=== PATIENT | female | born 1965 | race African-American/Black ===

== ENCOUNTER 2019-06-28 12:27 | Inpatient (IN) | payer OTHER ==
[2019-06-28 13:45] VITALS: BMI 38.0
--- NOTE | 2019-06-28 15:11 | HP ---
COWS - Scale Resting Pulse: 0= [place] 80 or Below Sweatin= Chills/Flushing Restless Observation: 1= Difficult to Sit Still Pupil Size: 1= Pupils >than Normal Bone or Joint Aches: 2= Severe Diffuse Aches Runny Nose/ Eye Tearin= Runny Nose/Eyes GI Upset > 30mins: 2= Nausea/Diarrhea Tremor Observation: 2= Slight Tremor Visible Yawning Observation: 2= >3x During Session Anxiety or Irritability: 2=Irritable/Anxious Goose Flesh Skin: 0=Smooth Skin COWS Score: 15 CIWA Score Nausea/Vomitin Muscle Tremors: 3 Anxiety: 3 Agitation: 3 Paroxysmal Sweats: 1-Minimal Palms Moist Orientation: 0-Oriented Tacttile Disturbances: 1-Very Mild Itch/Numbness Auditory Disturbances: 0-None Visual Disturbances: 0-None Headache: 2-Mild CIWA-Ar Total Score: 15 - Admission Criteria OASAS Guidelines: Admission for Medically Managed Detox: Requires at least one of the followin. CIWA greater than 12 2. Seizures within the past 24 hours 3. Delirium tremens within the past 24 hours 4. Hallucinations within the past 24 hours 5. Acute intervention needed for co occurring medical disorder 6. Acute intervention needed for co occurring psychiatric disorder 7. Severe withdrawal that cannot be handled at a lower level of care (continued vomiting, continued diarrhea, abnormal vital signs) requiring intravenous medication and/or fluids 8. Admitting History and Physical - Admission Chief Complaint: i need help to stop using heroin,alcohol,cocaine,xanax History of Present Illness: this 54 years old female with heroin,alcohol,cocaine,xanax dependence,seking help,detox,withdrawal symptom,last detox [id number] not completed History Source: Patient - Past Medical History Cardiovascular: Yes: HTN, Hyperlipdemia ...: No ...: 8 ...Para: 7 Psych: Yes: Bipolar, Depression Musculoskeletal: Yes: Osteoarthritis Dermatology: Yes: Eczema - Past Surgical History Past Surgical History: Yes: Additional Past Surgical History: c/s x 2 last 18 - Smoking History Smoking history: Current every day smoker Have you smoked in the past 12 months: Yes Aproximately how many cigarettes per day: 5 - Alcohol/Substance Use Hx Alcohol Use: Yes History of Substance Use: reports: Cocaine, Heroin, Tranquilizers - Social History Usual Living Arrangement: Yes: Other (homeless) ADL: Support Services Occupation: unemployed History of Recent Travel: No Admission ROS [facility] Chief Complaint: i need help to stop using heroin,alcohol,cocaine,xanax Allergies/Adverse Reactions: Allergies Allergy/AdvReac Type Severity Reaction Status Date / Time No Known Allergies Allergy Verified 06/28/19 13:35 - Ebola screening Have you traveled outside of the country in the last 21 days: No Have you had contact with anyone from an Ebola affected area: No Have you been sick,other than usual withdrawal symptoms: No Do you have a fever: No - Review of Systems Constitutional: Chills, Loss of Appetite, Malaise, Night Sweats, Changes in sleep, Weakness EENT: reports: Tearing, Nose Congestion Respiratory: reports: No Symptoms reported Cardiac: reports: No Symptoms Reported GI: reports: Nausea, Poor Appetite, Abdominal cramping : reports: No Symptoms Reported Musculoskeletal: reports: Back Pain, Joint Pain, Muscle Pain Neuro: reports: Headache, Tremors Endocrine: reports: No Symptoms Reported Hematology: reports: No Symptoms Reported Psychiatric: reports: No Sypmtoms Reported, Judgement Intact, Mood/Affect Appropiate, Orientated x3, other (bipolar disorder,insomnia) Patient History - Patient Medical History Hx Anemia: No Hx Asthma: No Hx Chronic Obstructive Pulmonary Disease (COPD): No Hx Cancer: No Hx Cardiac Disorders: No Hx Congestive Heart Failure: No Hx Hypertension: Yes (on med) Hx Hypercholesterolemia: Yes (on med) Hx Pacemaker: No HX Cerebrovascular Accident: No Hx Seizures: No Hx Dementia: No Hx Diabetes: No Hx Gastrointestinal Disorders: No Hx Liver Disease: No Hx Genitourinary Disorders: No Hx Sexually Transmitted Disorders: No Hx Renal Disease (ESRD): No Hx Thyroid Disease: No Hx Human Immunodeficiency Virus (HIV): No (last 06/09 negative) Hx Hepatitis C: No Hx Depression: No Hx Suicide Attempt: No Hx Bipolar Disorder: Yes (no med) Hx Schizophrenia: No Other Medical History: no suicidal,no homicidal - Patient Surgical History Past Surgical History: Yes Hx Section: Yes (x2 last 18 yars ago) - Reproductive History Patient is a Female of Child Bearing Age (11 -55 yrs old): Yes Last Menstrual Period: 04/29/15 Patient : No - Smoking Cessation Smoking history: Current every day smoker Have you smoked in the past 12 months: Yes Aproximately how many cigarettes per day: 5 Cigars Per Day: 0 Hx Chewing Tobacco Use: No Initiated information on smoking cessation: Yes 'Breaking Loose' booklet given: 06/28/19 - Substance & Tx. History Hx Alcohol Use: Yes Hx Substance Use: Yes Substance Use Type: Alcohol, Cocaine, Heroin, Tranquilizers Hx Substance Use Treatment: Yes ([facility] 06/09 not completed) - Substances abused Alcohol Substance route: Oral Frequency: Daily Amount used: 1 nip and 1 16oz beer Age of first use: 54 Date of last use: 06/26/19 Alprazolam (Xanax) Substance route: Oral Frequency: Daily Amount used: 4mg/day Age of first use: 54 Date of last use: 06/27/19 Heroin Substance route: Inhalation Frequency: Daily Amount used: 12 bags/day Age of first use: 28 Date of last use: 06/28/19 Cocaine Substance route: Smoking Frequency: Daily Amount used: $30/day Age of first use: 35 Date of last use: 06/27/19 Admission Physical Exam S - Vital Signs Vital Signs: Vital Signs - 24 hr 06/28/19 13:35 Temperature 98.0 F Pulse Rate 62 Respiratory 16 Rate Blood Pressure 180/100 H - Physical General Appearance: Yes: Moderate Distress, Tremorous, Irritable, Sweating, Anxious HEENTM: Yes: Normal ENT Inspection, KATHLEEN, Pharynx Normal Respiratory: Yes: Lungs Clear, Normal Breath Sounds, No Respiratory Distress Neck: Yes: Within Normal Limits, Supple, Trachea in good position Breast: Yes: Breast Exam Deferred Cardiology: Yes: Within Normal Limits, Regular Rhythm, S1, S2, Tachycardia Abdominal: Yes: Within Normal Limits, Normal Bowel Sounds, Non Tender, Soft Genitourinary: Yes: Within Normal Limits Back: Yes: Muscle Spasm Musculoskeletal: Yes: Back pain, Joint Stiffness, Muscle Pain Extremities: Yes: Within Normal Limits, Normal Range of Motion, Tremors Integumentary: Yes: Dry, Rash (eczema) - Diagnostic (1) Opioid dependence with withdrawal Current Visit: Yes Status: Acute (2) Cocaine dependence Current Visit: Yes Status: Acute (3) Cannabis dependence Current Visit: Yes Status: Acute (4) Alcohol dependence with uncomplicated withdrawal Current Visit: Yes Status: Acute (5) Dehydration Current Visit: Yes Status: Acute (6) Eczema Current Visit: Yes Status: Acute (7) Bipolar 1 disorder Current Visit: Yes Status: Acute Cleared for Admission S - Detox or Rehab [facility] Level of Care: Medically Managed (and ativan) Detox Regimen/Protocol: Methadone Claeared for Rehab Admission: Yes Breathalyzer - Breathalyzer Breathalyzer: 0 Urine Drug Screen - Test Device Lot number: [id number] Expiration date: 02/18/21 - Control Is test valid?: Yes - Results Drug screen NEGATIVE: No Urine drug screen results: WILMER-Cocaine, FEN-Fentanyl, MOP-Opiates, MTD-Methadone , BZO-Benzodiazepines Inpatient Rehab Admission - Rehab Decision to Admit Inpatient rehab admission?: No
[2019-06-28] MEDS ORDERED: BISMUTH SUBSALICYLATE 524 MG/30 ML UD PO PRN (15:25)
[2019-06-28] MEDS ORDERED: ACETAMINOPHEN 325 MG TABLET (FP) PO PRN ×2 (15:25)
[2019-06-28] MEDS ORDERED: LORazepam 1 MG TABLET PO PRN (15:25)
[2019-06-28] MEDS ORDERED: MAGNESIUM CITRATE 300 ML BOTTLE PO PRN (15:25)
[2019-06-28] MEDS ORDERED: MENTHOL/PHENOL 1 EACH UD MM PRN (15:25)
[2019-06-28] MEDS ORDERED: cloNIDine HCL 0.1 MG TABLET PO PRN (15:25)
[2019-06-28] MEDS ORDERED: METHADONE HCL 10 MG TABLET (FOR DETOX USE ONLY) PO ONE (15:25)
[2019-06-28] MEDS ORDERED: MAGNESIUM HYDROX 2400MG/30ML ORAL SUSPENSION 30 ML CUP PO PRN (15:25)
[2019-06-28] MEDS ORDERED: IBUPROFEN 400 MG TABLET (FP) PO PRN (15:25)
[2019-06-28] MEDS ORDERED: MAG HYDROX/AL HYDROX/SIMETH 30 ML UNIT-DOSE CUP PO PRN (15:25)
[2019-06-28] MEDS ORDERED: hydrOXYzine PAMOATE 25 MG CAPSULE (FP) PO PRN (15:25)
[2019-06-28] MEDS ORDERED: METHOCARBAMOL 500 MG TABLET PO PRN (15:25)
[2019-06-28] MEDS: LORazepam 2 MG TABLET PO SCH ×2 (16:56→22:36)
[2019-06-28] MEDS: HYDROCHLOROTHIAZIDE 25 MG TABLET (FP) PO SCH (16:56)
[2019-06-28] MEDS: MELATONIN 5 MG TABLETS PO PRN (22:36)
[2019-06-28] MEDS: THIAMINE HCL 100 MG TABLET (FP) PO SCH (22:36)
[2019-06-28] MEDS: FLUOCINONIDE 0.05% TOP OINT (60 GM TUBE) TP SCH (22:36)
[2019-06-29] MEDS: LORazepam 2 MG TABLET PO SCH ×4 (05:56→22:23)
[2019-06-29] MEDS ORDERED: METHADONE HCL 10 MG TABLET (FOR DETOX USE ONLY) ONE (09:39)
[2019-06-29] MEDS ORDERED: METHADONE HCL 5 MG TABLET (FOR DETOX USE ONLY) ONE (09:39)
[2019-06-29] MEDS ORDERED: METHADONE (DETOX) 20 MG, METHADONE (DETOX) 5 MG PO ONE (10:00)
[2019-06-29] MEDS: PRENATAL VITAMINS W/ FOLIC ACID TABLET (FP) PO SCH (10:29)
[2019-06-29] MEDS: FLUOCINONIDE 0.05% TOP OINT (60 GM TUBE) TP SCH ×2 (10:31→22:23)
[2019-06-29] MEDS: HYDROCHLOROTHIAZIDE 25 MG TABLET (FP) PO SCH (10:31)
[2019-06-29 11:02] LABS: HEMATOCRIT 35.3 % (32.4-45.2); HEMOGLOBIN 11.4 GM/dL (10.7-15.3); MCH 24.5 pg (25.7-33.7); MCHC 32.2 g/dl (32.0-36.0); MEAN CELL VOLUME 75.9 fl (80-96); MEAN PLT VOLUME 9.1 fl (7.5-11.1); PLATELET COUNT 212 K/MM3 (134-434); RBC 4.65 M/mm3 (3.60-5.2); RDW 16.6 % (11.6-15.6); WHITE BLOOD COUNT 6.3 K/mm3 (4.0-10.0)
[2019-06-29 11:20] LABS: ALBUMIN 2.9 g/dl (3.4-5.0); BILIRUBIN,TOTAL 0.3 mg/dL (0.2-1); BLOOD UREA NITROGEN 10.4 mg/dL (7-18); CREATININE 0.9 mg/dL (0.55-1.3); POTASSIUM 3.2 mmol/L (3.5-5.1); TOT PROT 5.8 g/dl (6.4-8.2)
--- NOTE | 2019-06-29 11:28 | PN ---
S CIWA - CIWA Score Nausea/Vomitin-Mild Nausea/No Vomiting Muscle Tremors: 2 Anxiety: 3 Agitation: 1-Slight > Activity Paroxysmal Sweats: 2 Orientation: 1-Uncertain about Date Tacttile Disturbances: 1-Very Mild Itch/Numbness Auditory Disturbances: 1-Very Mild Visual Disturbances: 0-None Headache: 2-Mild CIWA-Ar Total Score: 14 BHS COWS - Scale Resting Pulse: 0= [place] 80 or Below Sweatin= Chills/Flushing Restless Observation: 0= Sits Still Pupil Size: 1= Pupils >than Normal Bone or Joint Aches: 1= Mild Discomfort Runny Nose/ Eye Tearin= Nasal Congestion GI Upset > 30mins: 2= Nausea/Diarrhea Tremor Observation of Outstretched Hands: 2= Slight Tremor Visible Yawning Observation: 1= 1-2x During Session Anxiety or Irritability: 2=Irritable/Anxious Goose Flesh Skin: 3=Piloerection COWS Score: 14 S Progress Note (SOAP) Subjective: 54 years old female admitted on 06/28/19 for alcohol opiate withdrawal sx management treated with ativan and methadone ate breakfast tolerated food and fluid well felling tired prefers to stay in bed today Objective: 06/29/19 11:30 Vital Signs Temperature 98.6 F 06/29/19 09:24 Pulse Rate 61 06/29/19 09:24 Respiratory Rate 18 06/29/19 09:24 Blood Pressure 142/93 06/29/19 09:24 O2 Sat by Pulse Oximetry (%) Laboratory Last Values Sodium 143 mmol/L (136-145) 06/29/19 07:50 Potassium 3.2 mmol/L (3.5-5.1) L 06/29/19 07:50 Chloride 104 mmol/L (98-107) 06/29/19 07:50 Carbon Dioxide 32 mmol/L (21-32) 06/29/19 07:50 Anion Gap 7 MMOL/L (8-16) L 06/29/19 07:50 BUN 10.4 mg/dL (7-18) 06/29/19 07:50 Creatinine 0.9 mg/dL (0.55-1.3) 06/29/19 07:50 Est GFR (CKD-EPI)AfAm 83.43 06/29/19 07:50 Est GFR (CKD-EPI)NonAf 71.98 06/29/19 07:50 Random Glucose 87 mg/dL (74-106) 06/29/19 07:50 Calcium 9.0 mg/dL (8.5-10.1) 06/29/19 07:50 Total Bilirubin 0.3 mg/dL (0.2-1) 06/29/19 07:50 AST 10 U/L (15-37) L 06/29/19 07:50 ALT 12 U/L (13-61) L 06/29/19 07:50 Alkaline Phosphatase 70 U/L (45-117) 06/29/19 07:50 Total Protein 5.8 g/dl (6.4-8.2) L 06/29/19 07:50 Albumin 2.9 g/dl (3.4-5.0) L 06/29/19 07:50 lab noted low K+ K+ supplement 06/29/19 11:35 repeat K+ Assessment: 06/29/19 11:35 alcohol and opiate withdrawal sx Plan: continue ativan and methadone
[2019-06-29 11:55] LABS: SICKLE CELL SCREEN NEGATIVE (NEGATIVE)
[2019-06-29] MEDS ORDERED: POTASSIUM CHLORIDE ORAL LIQUID 20 MEQ/15 ML PO ONE ×2 (12:00→16:00)
--- NOTE | 2019-06-29 12:34 | CONSULT ---
[facility] Psychiatric Consult - Data Date of interview: 06/29/19 Admission source: [facility] Identifying data: First visit to [facility] for this 54 y/o AA female self- referred for detoxification (NAOMIE issues : alcohol, xanax, heroin, cocaine, nicotine). Interviewed at [address] [place] [address]. Patient is single, mother of seven, homeless , unemployed and deprived of financial assistance. Substance Abuse History: Discussed with the patient. Details in current [facility] report as follows : Smoking history: Current every day smoker. Have you smoked in the past 12 months: Yes. Aproximately how many cigarettes per day: 5. Cigars Per Day: 0. Hx Chewing Tobacco Use: No. Initiated information on smoking cessation: Yes. 'Breaking Loose' booklet given: 06/28/19. - Substance & Tx. History. Hx Alcohol Use: Yes. Hx Substance Use: Yes. Substance Use Type : Alcohol, Cocaine, Heroin, Tranquilizers. Hx Substance Use Treatment: Yes ( I 06/09 not completed). - Substances abused. Alcohol. Substance route: Oral. Frequency: Daily. Amount used: 1 nip and 1 16oz beer. Age of first use : 54. Date of last use: 06/26/19. Alprazolam (Xanax). Substance route: Oral. Frequency: Daily. Amount used: 4mg/day. Age of first use: 54. Date of last use: 06/27/19. Heroin. Substance route: Inhalation. Frequency: Daily. Amount used: 12 bags/day. Age of first use: 28. Date of last use: 03/09. Cocaine. Substance route: Smoking. Frequency: Daily. Amount used: $30/day. Age of first use: 35. Date of last use: 06/27/19 Medical History: Medical profile is remarkable for osteoarthritis, hypertension , eczema, dyslipidemia and history of two sections. Psychiatric History: No reported history of psychiatric hospitalizations. Patient endorses the diagnosis of MDD and past psychiatric follow-up at the [facility] [place]PD clinic in [facility] [place]. Used to be prescribed trazodone. Non- adherent to OPD care + medications " for a while ". Ms Vazquez denies history of suicide attempts. Physical/Sexual Abuse/Trauma History: Not discussed. Patient declines. Additional Comment: Urine drug screen results: WILMER-Cocaine, FEN-Fentanyl, MOP- Opiates, MTD-Methadone, BZO-Benzodiazepines. Noted. Mental Status Exam - Mental Status Exam Alert and Oriented to: Time, Place, Person Cognitive Function: Good Patient Appearance: Disheveled Mood: Nervous, Withdrawn Affect: Mood Congruent, Constricted Patient Behavior: Fatigued, Appropriate, Cooperative Speech Pattern: Clear Voice Loudness: Normal Thought Process: Intact, Goal Oriented Thought Disorder: Not Present Hallucinations: Denies Suicidal Ideation: Denies Homicidal Ideation: Denies Insight/Judgement: Poor Sleep: Fair Appetite: Good Gait/Station: Normal Psychiatric Findings - Problem List ([place] 1, 2,3) (1) Alcohol dependence with uncomplicated withdrawal Current Visit: Yes Status: Acute (2) Opioid dependence with withdrawal Current Visit: Yes Status: Acute (3) Cannabis dependence Current Visit: Yes Status: Chronic (4) Cocaine dependence Current Visit: Yes Status: Chronic (5) Nicotine dependence Current Visit: Yes Status: Chronic (6) Substance induced mood disorder Current Visit: Yes Status: Chronic (7) History of depression Current Visit: Yes Status: Chronic (8) Insomnia Current Visit: Yes Status: Chronic - Initial Treatment Plan Initial Treatment Plan: Psychoeducation. Sleep hygiene. Support. Detoxification. MAT services are discussed with the patient. Ms Vazquez declines to resume trazodone or SSRI agents. " Detox is what I am here for. I don't want anything else ". Observation.
--- NOTE | 2019-06-29 13:43 | EKG ---
Test Reason : Blood Pressure : / mmHG Vent. Rate : 057 BPM Atrial Rate : 057 BPM P-R Int : 180 ms QRS Dur : 108 ms QT Int : 492 ms P-R-T Axes : 029 009 037 degrees QTc Int : 478 ms SINUS BRADYCARDIA MINIMAL VOLTAGE CRITERIA FOR LVH, MAY BE NORMAL VARIANT BORDERLINE ECG NO PREVIOUS ECGS AVAILABLE Confirmed by SWAPNIL SCHWAB MD ([id number]) on 06/29/2019 1:43:32 PM Referred By: Confirmed By:SWAPNIL SCHWAB MD
[2019-06-29] MEDS: THIAMINE HCL 100 MG TABLET (FP) PO SCH (22:23)
[2019-06-30] MEDS: LORazepam 1 MG TABLET PO SCH ×4 (06:10→22:26)
[2019-06-30] MEDS ORDERED: METHADONE HCL 10 MG TABLET (FOR DETOX USE ONLY) PO ONE (10:00)
[2019-06-30] MEDS: HYDROCHLOROTHIAZIDE 25 MG TABLET (FP) PO SCH (10:43)
[2019-06-30] MEDS: PRENATAL VITAMINS W/ FOLIC ACID TABLET (FP) PO SCH (10:43)
[2019-06-30] MEDS: FLUOCINONIDE 0.05% TOP OINT (60 GM TUBE) TP SCH ×2 (10:44→23:10)
--- NOTE | 2019-06-30 13:57 | PN ---
[facility] CIWA - CIWA Score Nausea/Vomitin-Mild Nausea/No Vomiting Muscle Tremors: 3 Anxiety: 2 Agitation: 0-Normal Activity Paroxysmal Sweats: 2 Orientation: 0-Oriented Tacttile Disturbances: 1-Very Mild Itch/Numbness Auditory Disturbances: 0-None Visual Disturbances: 0-None Headache: 1-Very Mild CIWA-Ar Total Score: 10 BHS COWS - Scale Resting Pulse: 0= [place] 80 or Below Sweatin= Chills/Flushing Restless Observation: 0= Sits Still Pupil Size: 1= Pupils >than Normal Bone or Joint Aches: 1= Mild Discomfort Runny Nose/ Eye Tearin= Nasal Congestion GI Upset > 30mins: 2= Nausea/Diarrhea Tremor Observation of Outstretched Hands: 2= Slight Tremor Visible Yawning Observation: 1= 1-2x During Session Anxiety or Irritability: 1=Feels Anxious/Irritable Goose Flesh Skin: 0=Smooth Skin COWS Score: 10 S Progress Note (SOAP) Subjective: 54 years old female admitted on 06/28/19 for alcohol and opiate withdrawal sx management treated with ativan and methadone detox regimen less tremor mild anxiety Objective: 06/30/19 14:02 Vital Signs Temperature 97.6 F 06/30/19 09:22 Pulse Rate 61 06/30/19 09:22 Respiratory Rate 18 06/30/19 09:22 Blood Pressure 118/71 06/30/19 09:22 O2 Sat by Pulse Oximetry (%) Laboratory Last Values WBC 6.3 K/mm3 (4.0-10.0) 06/29/19 07:50 RBC 4.65 M/mm3 (3.60-5.2) 06/29/19 07:50 Hgb 11.4 GM/dL (10.7-15.3) 06/29/19 07:50 Hct 35.3 % (32.4-45.2) 06/29/19 07:50 MCV 75.9 fl (80-96) L 06/29/19 07:50 MCH 24.5 pg (25.7-33.7) L 06/29/19 07:50 MCHC 32.2 g/dl (32.0-36.0) 06/29/19 07:50 RDW 16.6 % (11.6-15.6) H 06/29/19 07:50 Plt Count 212 K/MM3 (134-434) 06/29/19 07:50 MPV 9.1 fl (7.5-11.1) 06/29/19 07:50 Sickle Cell Screen Negative (NEGATIVE) 06/29/19 07:50 Sodium 143 mmol/L (136-145) 06/29/19 07:50 Potassium 3.8 mmol/L (3.5-5.1) 06/30/19 07:50 Chloride 104 mmol/L (98-107) 06/29/19 07:50 Carbon Dioxide 32 mmol/L (21-32) 06/29/19 07:50 Anion Gap 7 MMOL/L (8-16) L 06/29/19 07:50 BUN 10.4 mg/dL (7-18) 06/29/19 07:50 Creatinine 0.9 mg/dL (0.55-1.3) 06/29/19 07:50 Est GFR (CKD-EPI)AfAm 83.43 06/29/19 07:50 Est GFR (CKD-EPI)NonAf 71.98 06/29/19 07:50 Random Glucose 87 mg/dL (74-106) 06/29/19 07:50 Calcium 9.0 mg/dL (8.5-10.1) 06/29/19 07:50 Total Bilirubin 0.3 mg/dL (0.2-1) 06/29/19 07:50 AST 10 U/L (15-37) L 06/29/19 07:50 ALT 12 U/L (13-61) L 06/29/19 07:50 Alkaline Phosphatase 70 U/L (45-117) 06/29/19 07:50 Total Protein 5.8 g/dl (6.4-8.2) L 06/29/19 07:50 Albumin 2.9 g/dl (3.4-5.0) L 06/29/19 07:50 RPR Titer Nonreactive (NONREACTIVE) 06/29/19 07:50 HIV 1&2 Antibody Screen Negative 06/29/19 07:50 HIV P24 Antigen Negative 06/29/19 07:50 lab noted Assessment: 06/30/19 14:04 alcohol opiate withdrawal sx Plan: ativan and methadone regimen
[2019-06-30] MEDS: THIAMINE HCL 100 MG TABLET (FP) PO SCH (22:26)
[2019-06-30] MEDS: MELATONIN 5 MG TABLETS PO PRN (22:27)
[2019-07-01] MEDS ORDERED: LORazepam 0.5 MG TABLET PO PRN
[2019-07-01] MEDS: LORazepam 0.5 MG TABLET PO SCH ×4 (05:43→23:10)
[2019-07-01] MEDS ORDERED: METHADONE HCL 10 MG TABLET (FOR DETOX USE ONLY) ONE (08:26)
[2019-07-01] MEDS ORDERED: METHADONE HCL 5 MG TABLET (FOR DETOX USE ONLY) ONE (08:27)
[2019-07-01] MEDS ORDERED: METHADONE (DETOX) 10 MG, METHADONE (DETOX) 5 MG PO ONE (10:00)
[2019-07-01] MEDS: PRENATAL VITAMINS W/ FOLIC ACID TABLET (FP) PO SCH (10:44)
[2019-07-01] MEDS: HYDROCHLOROTHIAZIDE 25 MG TABLET (FP) PO SCH (10:45)
[2019-07-01] MEDS: FLUOCINONIDE 0.05% TOP OINT (60 GM TUBE) TP SCH ×2 (10:45→23:10)
--- NOTE | 2019-07-01 11:26 | PN ---
[facility] CIWA - CIWA Score Nausea/Vomitin-No Nausea/No Vomiting Muscle Tremors: 2 Anxiety: 2 Agitation: 1-Slight > Activity Paroxysmal Sweats: No Perspiration Orientation: 0-Oriented Tacttile Disturbances: 0-None Auditory Disturbances: 0-None Visual Disturbances: 0-None Headache: 0-None Present CIWA-Ar Total Score: 5 S COWS - Scale Resting Pulse: 1= [place] 81-100 Sweatin= Chills/Flushing Restless Observation: 0= Sits Still Pupil Size: 0= Normal to Room Light Bone or Joint Aches: 1= Mild Discomfort Runny Nose/ Eye Tearin= None GI Upset > 30mins: 0= None Tremor Observation of Outstretched Hands: 1= Tremor [place], Not Seen Yawning Observation: 0= None Anxiety or Irritability: 1=Feels Anxious/Irritable Goose Flesh Skin: 0=Smooth Skin COWS Score: 5 [facility] Progress Note (SOAP) Subjective: 54 years old female admitted on 06/28/19 for alcohol opiate withdrawal sx management treated with ativan methadone detox regimen feeling a little better today prefers to resting in bed today Objective: 07/01/19 11:25 Vital Signs Temperature 96.7 F L 07/01/19 09:21 Pulse Rate 86 07/01/19 09:21 Respiratory Rate 18 07/01/19 09:21 Blood Pressure 139/78 07/01/19 09:21 O2 Sat by Pulse Oximetry (%) Laboratory Last Values WBC 6.3 K/mm3 (4.0-10.0) 06/29/19 07:50 RBC 4.65 M/mm3 (3.60-5.2) 06/29/19 07:50 Hgb 11.4 GM/dL (10.7-15.3) 06/29/19 07:50 Hct 35.3 % (32.4-45.2) 06/29/19 07:50 MCV 75.9 fl (80-96) L 06/29/19 07:50 MCH 24.5 pg (25.7-33.7) L 06/29/19 07:50 MCHC 32.2 g/dl (32.0-36.0) 06/29/19 07:50 RDW 16.6 % (11.6-15.6) H 06/29/19 07:50 Plt Count 212 K/MM3 (134-434) 06/29/19 07:50 MPV 9.1 fl (7.5-11.1) 06/29/19 07:50 Sickle Cell Screen Negative (NEGATIVE) 06/29/19 07:50 Sodium 143 mmol/L (136-145) 06/29/19 07:50 Potassium 3.8 mmol/L (3.5-5.1) 06/30/19 07:50 Chloride 104 mmol/L (98-107) 06/29/19 07:50 Carbon Dioxide 32 mmol/L (21-32) 06/29/19 07:50 Anion Gap 7 MMOL/L (8-16) L 06/29/19 07:50 BUN 10.4 mg/dL (7-18) 06/29/19 07:50 Creatinine 0.9 mg/dL (0.55-1.3) 06/29/19 07:50 Est GFR (CKD-EPI)AfAm 83.43 06/29/19 07:50 Est GFR (CKD-EPI)NonAf 71.98 06/29/19 07:50 Random Glucose 87 mg/dL (74-106) 06/29/19 07:50 Calcium 9.0 mg/dL (8.5-10.1) 06/29/19 07:50 Total Bilirubin 0.3 mg/dL (0.2-1) 06/29/19 07:50 AST 10 U/L (15-37) L 06/29/19 07:50 ALT 12 U/L (13-61) L 06/29/19 07:50 Alkaline Phosphatase 70 U/L (45-117) 06/29/19 07:50 Total Protein 5.8 g/dl (6.4-8.2) L 06/29/19 07:50 Albumin 2.9 g/dl (3.4-5.0) L 06/29/19 07:50 RPR Titer Nonreactive (NONREACTIVE) 06/29/19 07:50 HIV 1&2 Antibody Screen Negative 06/29/19 07:50 HIV P24 Antigen Negative 06/29/19 07:50 lab noted Assessment: 07/01/19 11:25 alcohol opiate withdrawal Plan: ativan methadone regimen
[2019-07-01] MEDS: THIAMINE HCL 100 MG TABLET (FP) PO SCH (23:10)
[2019-07-02] MEDS ORDERED: LORazepam 0.5 MG TABLET PO ONE (05:00)
[2019-07-02] MEDS ORDERED: cloNIDine HCL 0.1 MG TABLET PO PRN (09:50)
--- NOTE | 2019-07-02 09:57 | PN ---
[facility] CIWA - CIWA Score Nausea/Vomitin-No Nausea/No Vomiting Muscle Tremors: 1-None Visible, but [place] Anxiety: 1-Mildly Anxious Agitation: 0-Normal Activity Paroxysmal Sweats: 1-Minimal Palms Moist Orientation: 0-Oriented Tacttile Disturbances: 0-None Auditory Disturbances: 0-None Visual Disturbances: 0-None Headache: 0-None Present CIWA-Ar Total Score: 3 S COWS - Scale Resting Pulse: 0= [place] 80 or Below Sweatin= Chills/Flushing Restless Observation: 0= Sits Still Pupil Size: 0= Normal to Room Light Bone or Joint Aches: 0= None Runny Nose/ Eye Tearin= None GI Upset > 30mins: 1= Stomach Cramp Tremor Observation of Outstretched Hands: 0= None Yawning Observation: 0= None Anxiety or Irritability: 1=Feels Anxious/Irritable Goose Flesh Skin: 0=Smooth Skin COWS Score: 3 [facility] Progress Note (SOAP) Subjective: 54 years old female admitted on 06/28/19 for alcohol and opiate withdrawal sx management treating with ativan and methadone detox regimen feeling better today less tremor mild anxiety long history of hypertension treated with hctz 12.5mg po daily increased to 25 mg due to bp elevation additional amlodipine 5 mg po hs along with clonidine 0.1mg po prn q6h for hypertension encourage weight loss and low salt diet Objective: 07/02/19 09:56 Vital Signs Temperature 97.4 F L 07/02/19 06:23 Pulse Rate 48 L 07/02/19 06:23 Respiratory Rate 18 07/02/19 06:30 Blood Pressure 153/84 07/02/19 06:23 O2 Sat by Pulse Oximetry (%) Laboratory Last Values WBC 6.3 K/mm3 (4.0-10.0) 06/29/19 07:50 RBC 4.65 M/mm3 (3.60-5.2) 06/29/19 07:50 Hgb 11.4 GM/dL (10.7-15.3) 06/29/19 07:50 Hct 35.3 % (32.4-45.2) 06/29/19 07:50 MCV 75.9 fl (80-96) L 06/29/19 07:50 MCH 24.5 pg (25.7-33.7) L 06/29/19 07:50 MCHC 32.2 g/dl (32.0-36.0) 06/29/19 07:50 RDW 16.6 % (11.6-15.6) H 06/29/19 07:50 Plt Count 212 K/MM3 (134-434) 06/29/19 07:50 MPV 9.1 fl (7.5-11.1) 06/29/19 07:50 Sickle Cell Screen Negative (NEGATIVE) 06/29/19 07:50 Sodium 143 mmol/L (136-145) 06/29/19 07:50 Potassium 3.8 mmol/L (3.5-5.1) 06/30/19 07:50 Chloride 104 mmol/L (98-107) 06/29/19 07:50 Carbon Dioxide 32 mmol/L (21-32) 06/29/19 07:50 Anion Gap 7 MMOL/L (8-16) L 06/29/19 07:50 BUN 10.4 mg/dL (7-18) 06/29/19 07:50 Creatinine 0.9 mg/dL (0.55-1.3) 06/29/19 07:50 Est GFR (CKD-EPI)AfAm 83.43 06/29/19 07:50 Est GFR (CKD-EPI)NonAf 71.98 06/29/19 07:50 Random Glucose 87 mg/dL (74-106) 06/29/19 07:50 Calcium 9.0 mg/dL (8.5-10.1) 06/29/19 07:50 Total Bilirubin 0.3 mg/dL (0.2-1) 06/29/19 07:50 AST 10 U/L (15-37) L 06/29/19 07:50 ALT 12 U/L (13-61) L 06/29/19 07:50 Alkaline Phosphatase 70 U/L (45-117) 06/29/19 07:50 Total Protein 5.8 g/dl (6.4-8.2) L 06/29/19 07:50 Albumin 2.9 g/dl (3.4-5.0) L 06/29/19 07:50 RPR Titer Nonreactive (NONREACTIVE) 06/29/19 07:50 HIV 1&2 Antibody Screen Negative 06/29/19 07:50 HIV P24 Antigen Negative 06/29/19 07:50 lab noted Assessment: 07/02/19 09:56 alcohol and opiate withdrawal discuss medication assisted treatment program Plan: ativan and methadone regiment 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
[2019-07-02] MEDS ORDERED: METHADONE HCL 10 MG TABLET (FOR DETOX USE ONLY) PO ONE (10:00)
[2019-07-02 10:03] VITALS: BP 134/90; PULSE 54; TEMP 99.5
[2019-07-02] MEDS: PRENATAL VITAMINS W/ FOLIC ACID TABLET (FP) PO SCH (10:29)
[2019-07-02] MEDS: HYDROCHLOROTHIAZIDE 25 MG TABLET (FP) PO SCH (10:29)
[2019-07-02] MEDS: FLUOCINONIDE 0.05% TOP OINT (60 GM TUBE) TP SCH (10:29)
--- NOTE | 2019-07-02 14:55 | DS ---
[facility] Detox Discharge Summary Admission Date: 06/28/19 Discharge Date: 07/02/19 - History Present History: Alcohol Dependence, Opioid Dependence Additional Comments: 54 years old female admitted on 06/28/19 for alcohol and opiate withdrawal sx management treated with ativan and methadone detox regimen patient tolerated well alert oriented x 3 cardiac S1S2 regular slow rate rhythm respiratory clear lung bilaterally on auscultation extremities full range of motion Pertinent Past History: patient prefers to leave the detox earlier than estimated date of 07/03/19 patient prefers to go home and tomorrow go to [facility] case discussed with the nurse that routine discharge is appropriated transportation from detox facility back to home had arranged by the counselor - Physical Exam Results Vital Signs: Vital Signs Temperature 99.5 F 07/02/19 10:00 Pulse Rate 54 L 07/02/19 10:00 Respiratory Rate 18 07/02/19 10:00 Blood Pressure 134/90 07/02/19 10:00 O2 Sat by Pulse Oximetry (%) Pertinent Admission Physical Exam Findings: alcohol and opiate withdrawal sx Laboratory Last Values WBC 6.3 K/mm3 (4.0-10.0) 06/29/19 07:50 RBC 4.65 M/mm3 (3.60-5.2) 06/29/19 07:50 Hgb 11.4 GM/dL (10.7-15.3) 06/29/19 07:50 Hct 35.3 % (32.4-45.2) 06/29/19 07:50 MCV 75.9 fl (80-96) L 06/29/19 07:50 MCH 24.5 pg (25.7-33.7) L 06/29/19 07:50 MCHC 32.2 g/dl (32.0-36.0) 06/29/19 07:50 RDW 16.6 % (11.6-15.6) H 06/29/19 07:50 Plt Count 212 K/MM3 (134-434) 06/29/19 07:50 MPV 9.1 fl (7.5-11.1) 06/29/19 07:50 Sickle Cell Screen Negative (NEGATIVE) 06/29/19 07:50 Sodium 143 mmol/L (136-145) 06/29/19 07:50 Potassium 3.8 mmol/L (3.5-5.1) 06/30/19 07:50 Chloride 104 mmol/L (98-107) 06/29/19 07:50 Carbon Dioxide 32 mmol/L (21-32) 06/29/19 07:50 Anion Gap 7 MMOL/L (8-16) L 06/29/19 07:50 BUN 10.4 mg/dL (7-18) 06/29/19 07:50 Creatinine 0.9 mg/dL (0.55-1.3) 06/29/19 07:50 Est GFR (CKD-EPI)AfAm 83.43 06/29/19 07:50 Est GFR (CKD-EPI)NonAf 71.98 06/29/19 07:50 Random Glucose 87 mg/dL (74-106) 06/29/19 07:50 Calcium 9.0 mg/dL (8.5-10.1) 06/29/19 07:50 Total Bilirubin 0.3 mg/dL (0.2-1) 06/29/19 07:50 AST 10 U/L (15-37) L 06/29/19 07:50 ALT 12 U/L (13-61) L 06/29/19 07:50 Alkaline Phosphatase 70 U/L (45-117) 06/29/19 07:50 Total Protein 5.8 g/dl (6.4-8.2) L 06/29/19 07:50 Albumin 2.9 g/dl (3.4-5.0) L 06/29/19 07:50 RPR Titer Nonreactive (NONREACTIVE) 06/29/19 07:50 HIV 1&2 Antibody Screen Negative 06/29/19 07:50 HIV P24 Antigen Negative 06/29/19 07:50 lab noted - Treatment Hospital Course: Detox Protocol Followed, Detoxed Safely, Responded well, Discharged Condition Good, Rehab Referral Accepted Patient has Accepted a Rehab Referral to: [facility] - Medication Discharge Medications: Ambulatory Orders Hydrochlorothiazide [Hctz -] 25 mg PO DAILY 06/28/19 Naloxone HCl [Narcan] 4 mg NS ASDIR PRN #1 spray 07/02/19 - Diagnosis (1) Alcohol dependence with uncomplicated withdrawal Status: Acute (2) Eczema Status: Chronic Qualifiers: Eczema type: unspecified Qualified Code(s): L30.9 - Dermatitis, unspecified (3) Opioid dependence with withdrawal Status: Acute (4) Nicotine dependence Status: Acute Qualifiers: Nicotine product type: cigarettes Substance use status: in withdrawal Qualified Code(s): F17.213 - Nicotine dependence, cigarettes, with withdrawal (5) Substance induced mood disorder Status: Suspected - AMA Did Patient Leave Against Medical Advice: No CIWA Score - CIWA Score Nausea/Vomitin-No Nausea/No Vomiting Muscle Tremors: 1-None Visible, but [place] Anxiety: 1-Mildly Anxious Agitation: 1-Slight > Activity Paroxysmal Sweats: No Perspiration Orientation: 0-Oriented Tacttile Disturbances: 0-None Auditory Disturbances: 0-None Visual Disturbances: 0-None Headache: 0-None Present CIWA-Ar Total Score: 3 COWS (PN) - Opiate Withdrawal Resting Pulse: 0= [place] 80 or Below Sweatin= Chills/Flushing Restless Observation: 0= Sits Still Pupil Size: 0= Normal to Room Light Bone or Joint Aches: 0= None Runny Nose/ Eye Tearin= None GI Upset > 30mins: 0= None Tremor Observation of Outstretched Hands: 1= Tremor [place], Not Seen Yawning Observation: 0= None Anxiety or Irritability: 1=Feels Anxious/Irritable Goose Flesh Skin: 0=Smooth Skin COWS Score: 3
[2019-07-02] MEDS ORDERED: amLODIPine BESYLATE 5 MG TABLET (FP) PO SCH (22:00)
[2019-07-03] MEDS ORDERED: METHADONE HCL 5 MG TABLET (FOR DETOX USE ONLY) PO ONE (06:00)
== END 2019-07-02 13:20 | disposition home or self-care (01) | DRG 773 ==
LOC: YASAS 12:27 → Y3N 15:48
PROVIDERS: ADMIT Allergy & Immunology; ATTEND Allergy & Immunology
PROC: HZ2ZZZZ Detoxification Services for Substance Abuse Treatment (ICD-10-PCS; principal; 2019-06-28)
DX: F10.230 Alcohol dependence with withdrawal, uncomplicated (principal); F11.23 Opioid dependence with withdrawal; F14.20 Cocaine dependence, uncomplicated; F12.20 Cannabis dependence, uncomplicated; F17.213 Nicotine dependence, cigarettes, with withdrawal; F31.9 Bipolar disorder, unspecified; F19.24 Other psychoactive substance dependence with psychoactive substance-induced mood disorder; E87.6 Hypokalemia; E86.0 Dehydration; E78.5 Hyperlipidemia, unspecified; L30.9 Dermatitis, unspecified; G47.00 Insomnia, unspecified; M19.90 Unspecified osteoarthritis, unspecified site
CPT/HCPCS: 36415; 71046-TC-FY; 80053; 84132; 85027; 85660; 86593; 87389; 93005; 93010; J0735